=== PATIENT | female | born 1960 | race Caucasian/White ===

== ENCOUNTER 2017-04-15 16:41 | Inpatient (IN) | payer OTHER ==
[~2017-04-15] VITALS: Ht 160 cm; Wt 69.5 kg
[2017-04-15 16:46] VITALS: Ht 160 cm; Wt 69.5 kg
[2017-04-15 18:14] LABS: BASOPHIL % 1.2 % (0-2); PLATELET COUNT 306 x10^3mcL (130-400); RED CELL DISTRIBUTION WIDTH 12.6 % (11.5-14.5)
[2017-04-15 18:20] LABS: CALCIUM 8.8 mg/dL (8.5-10.1); CARBON DIOXIDE 26.9 mmol/L (21-32); CHLORIDE SERUM 106 mmol/L (98-107); CREATININE SERUM 0.7 mg/dL (0.6-1.0); GFR1 > 60 mL/min; GLUCOSE SERUM 152 mg/dL (74-106); POTASSIUM SERUM 3.3 mmol/L (3.5-5.1); SODIUM SERUM 143 mmol/L (136-145)
[2017-04-15 18:24] LABS: ALBUMIN 3.9 g/dL (3.4-5.0); ALKALINE PHOSPHATASE 77 U/L (46-116); ALT/SGPT 29 U/L (14-59); AST/SGOT 22 U/L (15-37); BILIRUBIN TOTAL 0.39 mg/dL (0.20-1.00); CHOLESTEROL 200 mg/dL (<200); HDL CHOLESTEROL 50 mg/dL (40-60); TOTAL PROTEIN, SERUM 7.3 g/dL (6.4-8.2)
[2017-04-15 18:29] LABS: LIPASE 1468 IU/L (73-393); TRIGLYCERIDES 219 mg/dL (<150)
[2017-04-15 18:58] LABS: FREE T4 0.97 ng/dL (0.76-1.46); FREE THYROXINE INDEX 2.4 ug/dL (1.4-4.5); T4(THYROXINE) 7.6 ug/dL (4.7-13.3)
[2017-04-15 19:23] LABS: T3 TOTAL 1.04 ng/mL
[2017-04-15 19:29] LABS: microscopic required? YES; urine erythrocyte 1+ (NEGATIVE)
[2017-04-15] MEDS ORDERED: ENALAPRIL MALEAT5 MG PO (21:24)
[2017-04-15] MEDS ORDERED: SIMVASTATIN40 M1 PO (21:24)
[2017-04-15] MEDS ORDERED: AMLODIPINE BESY10 M2 PO (21:25)
[2017-04-15] MEDS ORDERED: METFORMIN HCL1000 MG PO (21:27)
[2017-04-15 21:35] LABS: MAGNESIUM 1.9 mg/dL (1.8-2.4); PHOSPHOROUS 3.2 mg/dL (2.5-4.9)
[2017-04-15 21:44] VITALS: BP 138/80
[2017-04-15 21:59] LABS: AMPHETAMINE QUAL UR NONE DETECTED (NEG <=1000)
[2017-04-15 22:55] VITALS: BP 138/80
[2017-04-16 05:44] VITALS: BP 110/64
[2017-04-16 06:42] LABS: CALCIUM 7.9 mg/dL (8.5-10.1); CARBON DIOXIDE 23.1 mmol/L (21-32); CHLORIDE SERUM 112 mmol/L (98-107); CREATININE SERUM 0.5 mg/dL (0.6-1.0); GFR1 > 60 mL/min; GLUCOSE SERUM 127 mg/dL (74-106); POTASSIUM SERUM 4.1 mmol/L (3.5-5.1); SODIUM SERUM 144 mmol/L (136-145)
[2017-04-16 06:54] LABS: BASOPHIL % 0.6 % (0-2); PLATELET COUNT 241 x10^3mcL (130-400); RED CELL DISTRIBUTION WIDTH 13.3 % (11.5-14.5)
[2017-04-16 08:40] VITALS: BP 125/71
[2017-04-16] MEDS ORDERED: LAC PO (10:37)
[2017-04-16] MEDS ORDERED: MAC100 PO (10:37)
[2017-04-16 12:25] VITALS: BP 119/80
[2017-04-16 13:35] VITALS: BP 110/64
[2017-04-18] MEDS ORDERED: CIPRO500 MG PO (13:02)
== END 2017-04-16 15:52 | disposition home or self-care (01) | DRG 48 ==
LOC: ED 16:41 → DU 20:29
PROVIDERS: Specialist; ADMIT Family Medicine
DX: G90.8 Other disorders of autonomic nervous system (principal); K85.90 Acute pancreatitis without necrosis or infection, unspecified; E11.65 Type 2 diabetes mellitus with hyperglycemia; E83.51 Hypocalcemia; N39.0 Urinary tract infection, site not specified; E78.5 Hyperlipidemia, unspecified; E87.6 Hypokalemia; R31.9 Hematuria, unspecified; I10 Essential (primary) hypertension; Z85.89 Personal history of malignant neoplasm of other organs and systems; Z86.73 Personal history of transient ischemic attack (TIA), and cerebral infarction without residual deficits; Z90.89 Acquired absence of other organs; Z98.891 History of uterine scar from previous surgery; Z83.3 Family history of diabetes mellitus
CPT/HCPCS: 82962; 83880; 84439; 94150; G0480; J0694; J0696; J1170; J1940; J2405; J3010; J7030; J7050; J7620; Q0092; Q9967

== ENCOUNTER 2017-04-20 16:37 | Inpatient (IN) | payer OTHER ==
[~2017-04-20] VITALS: Ht 160 cm; Wt 66.4 kg
[~2017-04-20 16:37] MED LIST: AMLODIPINE BESY10 M2 PO; CIPRO500 MG PO; ENALAPRIL MALEAT5 MG PO; LAC PO; MAC100 PO; METFORMIN HCL1000 MG PO; SIMVASTATIN40 M1 PO
[2017-04-20 16:54] VITALS: Ht 160 cm; Wt 66.4 kg
[2017-04-20 21:05] LABS: BASOPHIL % 1.2 % (0-2); PLATELET COUNT 261 x10^3mcL (130-400); RED CELL DISTRIBUTION WIDTH 13.2 % (11.5-14.5)
[2017-04-20 21:13] LABS: CALCIUM 8.5 mg/dL (8.5-10.1); CARBON DIOXIDE 25.5 mmol/L (21-32); CHLORIDE SERUM 108 mmol/L (98-107); CREATININE SERUM 0.6 mg/dL (0.6-1.0); GFR1 > 60 mL/min; GLUCOSE SERUM 178 mg/dL (74-106); POTASSIUM SERUM 3.2 mmol/L (3.5-5.1); SODIUM SERUM 143 mmol/L (136-145)
[2017-04-20 21:26] LABS: ALBUMIN 3.4 g/dL (3.4-5.0); ALKALINE PHOSPHATASE 77 U/L (46-116); ALT/SGPT 25 U/L (14-59); AST/SGOT 14 U/L (15-37); BILIRUBIN TOTAL 0.33 mg/dL (0.20-1.00); CHOLESTEROL 166 mg/dL (<200); HDL CHOLESTEROL 47 mg/dL (40-60); MAGNESIUM 1.7 mg/dL (1.8-2.4); TOTAL PROTEIN, SERUM 6.5 g/dL (6.4-8.2)
[2017-04-20 21:30] LABS: microscopic required? YES; urine erythrocyte TRACE (NEGATIVE)
[2017-04-20 22:59] LABS: AMYLASE 133 U/L (25-115); LIPASE 1770 IU/L (73-393)
[2017-04-21 02:16] VITALS: BP 108/75
[2017-04-21 05:51] VITALS: BP 120/70
[2017-04-21 07:23] LABS: BASOPHIL % 0.3 % (0-2); PLATELET COUNT 256 x10^3mcL (130-400); RED CELL DISTRIBUTION WIDTH 13.8 % (11.5-14.5)
[2017-04-21 07:45] LABS: CALCIUM 8.5 mg/dL (8.5-10.1); CARBON DIOXIDE 21.3 mmol/L (21-32); CHLORIDE SERUM 107 mmol/L (98-107); CREATININE SERUM 0.6 mg/dL (0.6-1.0); GFR1 > 60 mL/min; GLUCOSE SERUM 243 mg/dL (74-106); MAGNESIUM 2.8 mg/dL (1.8-2.4); PHOSPHOROUS 2.1 mg/dL (2.5-4.9); POTASSIUM SERUM 3.6 mmol/L (3.5-5.1); SODIUM SERUM 141 mmol/L (136-145)
[2017-04-21 09:43] VITALS: BP 127/68
[2017-04-21 13:58] VITALS: BP 107/55
[2017-04-21 14:37] LABS: AMPHETAMINE QUAL UR NONE DETECTED (NEG <=1000)
[2017-04-21 17:48] VITALS: BP 102/52
[2017-04-21 21:36] VITALS: BP 110/64
[2017-04-22 06:20] VITALS: BP 102/64
[2017-04-22 06:44] LABS: PLATELET COUNT 269 x10^3mcL (130-400); RED CELL DISTRIBUTION WIDTH 13.5 % (11.5-14.5)
[2017-04-22 07:16] LABS: CALCIUM 8.1 mg/dL (8.5-10.1); CARBON DIOXIDE 23.2 mmol/L (21-32); CHLORIDE SERUM 110 mmol/L (98-107); CREATININE SERUM 0.6 mg/dL (0.6-1.0); GFR1 > 60 mL/min; GLUCOSE SERUM 175 mg/dL (74-106); MAGNESIUM 1.9 mg/dL (1.8-2.4); PHOSPHOROUS 2.9 mg/dL (2.5-4.9); POTASSIUM SERUM 3.3 mmol/L (3.5-5.1); SODIUM SERUM 144 mmol/L (136-145)
[2017-04-22 08:12] LABS: BAND NEUTROPHIL 1 % (0-10); METAMYELOCTE 1 % (0-2); MONOCYTE 4 % (0-7); SEGMENTED NEUTROPHILS 76 % (37-75); rbc morphology (normal/abnorm) NORMAL (NORMAL)
[2017-04-22 09:24] VITALS: BP 122/77
[2017-04-22 13:31] LABS: BASOPHIL % 0.2 % (0-2); PLATELET COUNT 295 x10^3mcL (130-400); RED CELL DISTRIBUTION WIDTH 13.5 % (11.5-14.5)
[2017-04-22 17:56] VITALS: BP 132/74
[2017-04-22 20:30] VITALS: BP 129/75
[2017-04-23 05:30] VITALS: BP 131/58
[2017-04-23 07:24] LABS: CALCIUM 8.6 mg/dL (8.5-10.1); CARBON DIOXIDE 27.5 mmol/L (21-32); CHLORIDE SERUM 108 mmol/L (98-107); CREATININE SERUM 0.7 mg/dL (0.6-1.0); GFR1 > 60 mL/min; GLUCOSE SERUM 122 mg/dL (74-106); POTASSIUM SERUM 3.9 mmol/L (3.5-5.1); SODIUM SERUM 143 mmol/L (136-145)
[2017-04-23 07:37] LABS: BASOPHIL % 0.6 % (0-2); PLATELET COUNT 284 x10^3mcL (130-400); RED CELL DISTRIBUTION WIDTH 13.8 % (11.5-14.5)
[2017-04-23 09:30] VITALS: BP 131/74
[2017-04-23 11:23] VITALS: BP 131/74
[2017-04-23] MEDS ORDERED: NORCO1 TA2 PO (13:20)
[2017-04-23] MEDS ORDERED: STOOL SOFTENER100 MG PO (13:20)
== END 2017-04-23 13:59 | disposition home or self-care (01) | DRG 282 ==
LOC: ED 16:37 → DU 04-21 00:22 → MU 04-21 01:59
PROVIDERS: Emergency Medicine; Family Medicine
DX: K85.90 Acute pancreatitis without necrosis or infection, unspecified (principal); E87.8 Other disorders of electrolyte and fluid balance, not elsewhere classified; D68.69 Other thrombophilia; E83.42 Hypomagnesemia; E11.65 Type 2 diabetes mellitus with hyperglycemia; N39.0 Urinary tract infection, site not specified; I10 Essential (primary) hypertension; G47.00 Insomnia, unspecified; E87.6 Hypokalemia; E78.5 Hyperlipidemia, unspecified; H81.10 Benign paroxysmal vertigo, unspecified ear; Z68.25 Body mass index [BMI] 25.0-25.9, adult; R51 Headache; G90.8 Other disorders of autonomic nervous system
CPT/HCPCS: 82962; 83880; 87804; J0744; J1885; J2405; J2550; J2930; J3010; J3475; J3480; J3490; J7030; J7613; J7644; J8597; Q0092

== ENCOUNTER 2017-05-06 15:44 | Inpatient (IN) | payer OTHER ==
[~2017-05-06] VITALS: Ht 160 cm; Wt 62.7 kg
[2017-05-06 00:30] VITALS: BP 131/73
[~2017-05-06 15:44] MED LIST changes: +NORCO1 TA2 PO; +STOOL SOFTENER100 MG PO
[2017-05-06 20:36] LABS: AMPHETAMINE QUAL UR NONE DETECTED (NEG <=1000)
[2017-05-06 20:37] LABS: CALCIUM 8.4 mg/dL (8.5-10.1); CARBON DIOXIDE 26.3 mmol/L (21-32); CHLORIDE SERUM 108 mmol/L (98-107); CREATININE SERUM 0.6 mg/dL (0.6-1.0); GFR1 > 60 mL/min; GLUCOSE SERUM 126 mg/dL (74-106); POTASSIUM SERUM 3.2 mmol/L (3.5-5.1); SODIUM SERUM 143 mmol/L (136-145)
[2017-05-06 20:41] LABS: ALBUMIN 3.6 g/dL (3.4-5.0); ALKALINE PHOSPHATASE 82 U/L (46-116); ALT/SGPT 24 U/L (14-59); AST/SGOT 15 U/L (15-37); BILIRUBIN TOTAL 0.6 mg/dL (0.20-1.00); LIPASE 235 IU/L (73-393)
[2017-05-06 20:48] LABS: BASOPHIL % 0.3 % (0-2); PLATELET COUNT 289 x10^3mcL (130-400); RED CELL DISTRIBUTION WIDTH 13.3 % (11.5-14.5)
[2017-05-07 00:05] LABS: microscopic required? YES; urine erythrocyte 2+ (NEGATIVE)
[2017-05-07 00:43] VITALS: BP 130/84
[2017-05-07 00:58] LABS: T3 TOTAL 1.35 ng/mL
[2017-05-07 00:59] LABS: PHOSPHOROUS 3.4 mg/dL (2.5-4.9)
[2017-05-07 01:06] VITALS: Ht 160 cm; Wt 62.7 kg
[2017-05-07 01:07] LABS: CHOLESTEROL/HDL RATIO 3.8
[2017-05-07 01:10] LABS: FREE T4 1.06 ng/dL (0.76-1.46); FREE THYROXINE INDEX 2.7 ug/dL (1.4-4.5); T4(THYROXINE) 8.5 ug/dL (4.7-13.3)
[2017-05-07 05:53] LABS: BASOPHIL % 0.5 % (0-2); PLATELET COUNT 267 x10^3mcL (130-400); RED CELL DISTRIBUTION WIDTH 13.5 % (11.5-14.5)
[2017-05-07 06:02] VITALS: BP 131/73
[2017-05-07 06:19] LABS: CALCIUM 8.4 mg/dL (8.5-10.1); CARBON DIOXIDE 24.7 mmol/L (21-32); CHLORIDE SERUM 110 mmol/L (98-107); CREATININE SERUM 0.6 mg/dL (0.6-1.0); GFR1 > 60 mL/min; GLUCOSE SERUM 115 mg/dL (74-106); MAGNESIUM 1.9 mg/dL (1.8-2.4); PHOSPHOROUS 2.9 mg/dL (2.5-4.9); POTASSIUM SERUM 4.1 mmol/L (3.5-5.1); SODIUM SERUM 143 mmol/L (136-145)
[2017-05-07 09:53] VITALS: BP 140/79
[2017-05-07 13:12] VITALS: BP 137/86
[2017-05-07 16:39] VITALS: BP 134/67
[2017-05-07 20:05] VITALS: BP 110/64
[2017-05-08 02:37] LABS: BASOPHIL % 0.3 % (0-2); PLATELET COUNT 267 x10^3mcL (130-400); RED CELL DISTRIBUTION WIDTH 13.2 % (11.5-14.5)
[2017-05-08 02:48] LABS: CALCIUM 8.7 mg/dL (8.5-10.1); CHLORIDE SERUM 109 mmol/L (98-107); CREATININE SERUM 0.7 mg/dL (0.6-1.0); GFR1 > 60 mL/min; GLUCOSE SERUM 144 mg/dL (74-106); POTASSIUM SERUM 3.7 mmol/L (3.5-5.1); SODIUM SERUM 143 mmol/L (136-145)
[2017-05-08 05:56] VITALS: BP 132/70
[2017-05-08] MEDS ORDERED: LEVOFLOXACIN750 M1 PO (08:59)
[2017-05-08] MEDS ORDERED: BD LACTINEX1.4 MG PO (09:00)
[2017-05-08 10:00] VITALS: BP 133/74
[2017-05-08 11:30] VITALS: BP 133/74
[2017-05-08] MEDS ORDERED: PHEDML PO (12:31)
[2017-05-08] MEDS ORDERED: FLO4 PO (13:14)
== END 2017-05-08 14:14 | disposition home or self-care (01) | DRG 137 ==
LOC: ED 15:44 → DU 22:32 → MU 22:32 → DU 23:53 → MU 05-07 08:14
PROVIDERS: Emergency Medicine; Family Medicine
DX: J69.0 Pneumonitis due to inhalation of food and vomit (principal); D68.69 Other thrombophilia; E87.6 Hypokalemia; I10 Essential (primary) hypertension; E11.65 Type 2 diabetes mellitus with hyperglycemia; N20.0 Calculus of kidney; F12.10 Cannabis abuse, uncomplicated; G47.00 Insomnia, unspecified; E78.5 Hyperlipidemia, unspecified; G51.0 Bell's palsy; Z85.42 Personal history of malignant neoplasm of other parts of uterus; Z86.73 Personal history of transient ischemic attack (TIA), and cerebral infarction without residual deficits; Z83.3 Family history of diabetes mellitus; G90.8 Other disorders of autonomic nervous system; R31.9 Hematuria, unspecified
CPT/HCPCS: 82962; 83880; 84439; 87804; 94150; G0480; J1885; J1940; J1956; J2405; J3490; J7030; J7620; J8597; Q0092

== ENCOUNTER 2017-12-17 23:20 | Emergency (ER) | payer OTHER ==
[~2017-12-17] VITALS: Ht 160 cm; Wt 64.9 kg
[~2017-12-17 23:20] MED LIST changes: +BD LACTINEX1.4 MG PO; +FLO4 PO; +LEVOFLOXACIN750 M1 PO; +PHEDML PO
[2017-12-17 23:27] VITALS: Ht 160 cm; Wt 64.9 kg
[2017-12-18 00:52] LABS: PLATELET COUNT 292 x10^3mcL (130-400); RED CELL DISTRIBUTION WIDTH 13.3 % (11.5-14.5)
[2017-12-18 01:12] LABS: CALCIUM 9.2 mg/dL (8.5-10.1); CHLORIDE SERUM 107 mmol/L (98-107); CREATININE SERUM 0.7 mg/dL (0.6-1.0); GFR1 > 60 mL/min; GLUCOSE SERUM 140 mg/dL (74-106); POTASSIUM SERUM 3.2 mmol/L (3.5-5.1); SODIUM SERUM 143 mmol/L (136-145)
[2017-12-18 01:17] LABS: ALBUMIN 4.2 g/dL (3.4-5.0); ALKALINE PHOSPHATASE 81 U/L (46-116); ALT/SGPT 23 U/L (14-59); AST/SGOT 15 U/L (15-37); BILIRUBIN TOTAL 0.78 mg/dL (0.20-1.00); TOTAL PROTEIN, SERUM 7.8 g/dL (6.4-8.2)
[2017-12-18 01:30] LABS: microscopic required? YES; urine erythrocyte 2+ (NEGATIVE)
[2017-12-18 04:59] VITALS: BP 128/75
== END 2017-12-18 04:59 | disposition home or self-care (01) ==
LOC: ED 23:20
PROVIDERS: Emergency Medicine
DX: K59.00 Constipation, unspecified (principal); I10 Essential (primary) hypertension; E11.9 Type 2 diabetes mellitus without complications; Z85.41 Personal history of malignant neoplasm of cervix uteri; Z86.73 Personal history of transient ischemic attack (TIA), and cerebral infarction without residual deficits
CPT/HCPCS: J1885; J2405; J7030

== ENCOUNTER 2018-01-19 19:09 | Emergency (ER) | payer OTHER ==
[~2018-01-19] VITALS: Ht 160 cm; Wt 66.3 kg
[2018-01-19 19:15] VITALS: Ht 160 cm; Wt 66.3 kg
[2018-01-19 22:50] VITALS: BP 134/78
== END 2018-01-19 22:50 | disposition home or self-care (01) ==
LOC: ED 19:09
DX: M75.31 Calcific tendinitis of right shoulder (principal); I10 Essential (primary) hypertension; E11.9 Type 2 diabetes mellitus without complications; G51.0 Bell's palsy; Z90.89 Acquired absence of other organs; Z85.41 Personal history of malignant neoplasm of cervix uteri
CPT/HCPCS: J1100; J1885; Q0092

== ENCOUNTER 2018-06-14 19:59 | Emergency (ER) | payer OTHER ==
[~2018-06-14] VITALS: Ht 160 cm; Wt 70.8 kg
[2018-06-14 20:02] VITALS: Ht 160 cm; Wt 70.8 kg
[2018-06-14 21:07] LABS: BASOPHIL % 0.8 % (0-2); PLATELET COUNT 282 x10^3mcL (130-400); RED CELL DISTRIBUTION WIDTH 12.9 % (11.5-14.5)
[2018-06-14 21:22] LABS: CALCIUM 8.9 mg/dL (8.5-10.1); CARBON DIOXIDE 28.2 mmol/L (21-32); CHLORIDE SERUM 102 mmol/L (98-107); GFR1 > 60 mL/min; GLUCOSE SERUM 337 mg/dL (74-106); POTASSIUM SERUM 3.9 mmol/L (3.5-5.1); SODIUM SERUM 138 mmol/L (136-145)
[2018-06-14 21:27] LABS: ALBUMIN 3.7 g/dL (3.4-5.0); ALKALINE PHOSPHATASE 120 U/L (46-116); ALT/SGPT 29 U/L (14-59); AST/SGOT 18 U/L (15-37); BILIRUBIN TOTAL 0.46 mg/dL (0.20-1.00); HDL CHOLESTEROL 50 mg/dL (40-60); LIPASE 194 IU/L (73-393); TOTAL PROTEIN, SERUM 7.3 g/dL (6.4-8.2)
[2018-06-14 21:28] LABS: CHOLESTEROL 255 mg/dL (<200); CHOLESTEROL/HDL RATIO 5.1; TRIGLYCERIDES 452 mg/dL (<150)
[2018-06-14 21:39] LABS: UA SPECIFIC GRAVITY 1.025 (1.005-1.035); microscopic required? YES; urine erythrocyte 1+ (NEGATIVE)
[2018-06-14 21:40] LABS: T3 TOTAL 1.24 ng/mL
[2018-06-14 21:48] LABS: FREE T4 0.86 ng/dL (0.76-1.46); FREE THYROXINE INDEX 2.3 ug/dL (1.4-4.5); T4(THYROXINE) 7.8 ug/dL (4.7-13.3)
[2018-06-14 23:15] VITALS: BP 140/77
== END 2018-06-14 23:25 | disposition home or self-care (01) ==
LOC: ED 19:59
PROVIDERS: Specialist
DX: E11.65 Type 2 diabetes mellitus with hyperglycemia (principal); R07.89 Other chest pain; E78.1 Pure hyperglyceridemia; F43.9 Reaction to severe stress, unspecified
CPT/HCPCS: 82962; 83880; 84439; 87804; J1885; J7030; Q0092

== ENCOUNTER 2018-07-25 14:35 | Inpatient (IN) | payer OTHER ==
[~2018-07-25] VITALS: Ht 160 cm; Wt 69.5 kg
[2018-07-25 15:34] LABS: PLATELET COUNT 283 x10^3mcL (130-400); RED CELL DISTRIBUTION WIDTH 12.8 % (11.5-14.5)
[2018-07-25 15:40] LABS: CALCIUM 8.6 mg/dL (8.5-10.1); CARBON DIOXIDE 25.6 mmol/L (21-32); CHLORIDE SERUM 98 mmol/L (98-107); CREATININE SERUM 0.9 mg/dL (0.6-1.0); GFR1 > 60 mL/min; GLUCOSE SERUM 389 mg/dL (74-106); POTASSIUM SERUM 3.8 mmol/L (3.5-5.1); SODIUM SERUM 132 mmol/L (136-145)
[2018-07-25 15:45] LABS: ALBUMIN 3.7 g/dL (3.4-5.0); ALKALINE PHOSPHATASE 116 U/L (46-116); ALT/SGPT 25 U/L (14-59); AST/SGOT 28 U/L (15-37); BASOPHIL % 2.3 % (0-2); BILIRUBIN TOTAL 0.99 mg/dL (0.20-1.00); TOTAL PROTEIN, SERUM 7.1 g/dL (6.4-8.2)
[2018-07-25 16:17] LABS: microscopic required? YES; urine erythrocyte 2+ (NEGATIVE)
[2018-07-25 17:48] VITALS: BP 140/81
[2018-07-25 17:56] VITALS: Ht 160 cm; Wt 69.5 kg
[2018-07-25 19:10] LABS: MAGNESIUM 1.6 mg/dL (1.8-2.4); PHOSPHOROUS 3.4 mg/dL (2.5-4.9)
[2018-07-25 19:41] LABS: CHOLESTEROL/HDL RATIO 4.7
[2018-07-25 21:27] VITALS: BP 120/70
[2018-07-26 05:19] VITALS: BP 126/73
[2018-07-26 06:22] LABS: BASOPHIL % 0.7 % (0-2); PLATELET COUNT 243 x10^3mcL (130-400); RED CELL DISTRIBUTION WIDTH 12.7 % (11.5-14.5)
[2018-07-26 06:38] LABS: CALCIUM 8.2 mg/dL (8.5-10.1); CARBON DIOXIDE 26.9 mmol/L (21-32); CHLORIDE SERUM 106 mmol/L (98-107); CREATININE SERUM 0.6 mg/dL (0.6-1.0); GFR1 > 60 mL/min; GLUCOSE SERUM 215 mg/dL (74-106); MAGNESIUM 1.9 mg/dL (1.8-2.4); POTASSIUM SERUM 3.9 mmol/L (3.5-5.1); SODIUM SERUM 140 mmol/L (136-145)
[2018-07-26 08:06] VITALS: BP 143/99
[2018-07-26 12:19] VITALS: BP 136/73
[2018-07-26] MEDS ORDERED: GLIMEPIRIDE4 M1 PO (12:47)
[2018-07-26 13:00] VITALS: BP 136/73
== END 2018-07-26 16:10 | disposition home or self-care (01) | DRG 203 ==
LOC: ED 14:35 → DU 16:34
PROVIDERS: Emergency Medicine; ADMIT Internal Medicine
DX: M94.0 Chondrocostal junction syndrome [Tietze] (principal); N17.0 Acute kidney failure with tubular necrosis; E11.65 Type 2 diabetes mellitus with hyperglycemia; E87.1 Hypo-osmolality and hyponatremia; D68.69 Other thrombophilia; I10 Essential (primary) hypertension; E78.5 Hyperlipidemia, unspecified; D72.829 Elevated white blood cell count, unspecified; G51.0 Bell's palsy; Z85.41 Personal history of malignant neoplasm of cervix uteri; Z86.73 Personal history of transient ischemic attack (TIA), and cerebral infarction without residual deficits; R55 Syncope and collapse; Z90.49 Acquired absence of other specified parts of digestive tract; Z83.3 Family history of diabetes mellitus
CPT/HCPCS: 82962; 83880; J1885; J2405; J7030; Q0092

== ENCOUNTER 2018-12-28 19:50 | Inpatient (IN) | payer OTHER ==
[~2018-12-28] VITALS: Ht 160 cm; Wt 68.0 kg
[~2018-12-28 19:50] MED LIST changes: +GLIMEPIRIDE4 M1 PO
[2018-12-28 19:53] VITALS: Ht 160 cm; Wt 68.0 kg
[2018-12-28 20:30] LABS: BASOPHIL % 0.5 % (0-2); PLATELET COUNT 292 x10^3mcL (130-400)
[2018-12-28 20:39] LABS: CALCIUM 8.1 mg/dL (8.5-10.1); CARBON DIOXIDE 25.8 mmol/L (21-32); CHLORIDE SERUM 108 mmol/L (98-107); CREATININE SERUM 0.7 mg/dL (0.6-1.0); GFR1 > 60 mL/min; GLUCOSE SERUM 146 mg/dL (74-106); POTASSIUM SERUM 3.8 mmol/L (3.5-5.1); SODIUM SERUM 145 mmol/L (136-145)
[2018-12-28 20:44] LABS: ALBUMIN 3.8 g/dL (3.4-5.0); ALKALINE PHOSPHATASE 86 U/L (46-116); ALT/SGPT 26 U/L (14-59); AST/SGOT 14 U/L (15-37); BILIRUBIN TOTAL 0.46 mg/dL (0.20-1.00); LIPASE 1290 IU/L (73-393); TOTAL PROTEIN, SERUM 6.8 g/dL (6.4-8.2)
[2018-12-28 21:17] LABS: CHOLESTEROL/HDL RATIO 4.7
[2018-12-28] MEDS ORDERED: [UNRECOGNIZED DRUG - OTHER] PO (21:19)
[2018-12-28] MEDS ORDERED: ATORVASTATIN CA40 M1 PO (21:19)
[2018-12-28] MEDS ORDERED: ENALAPRIL MALEA20 MG PO (21:20)
[2018-12-28] MEDS ORDERED: NORCO1 TA2 PO (21:20)
[2018-12-28 22:15] VITALS: BP 140/85
[2018-12-29 06:15] VITALS: BP 120/63
[2018-12-29 06:49] LABS: BASOPHIL % 0.6 % (0-2); PLATELET COUNT 251 x10^3mcL (130-400); RED CELL DISTRIBUTION WIDTH 13.3 % (11.5-14.5)
[2018-12-29 07:01] LABS: CALCIUM 7.6 mg/dL (8.5-10.1); CARBON DIOXIDE 26.8 mmol/L (21-32); CHLORIDE SERUM 111 mmol/L (98-107); CREATININE SERUM 0.6 mg/dL (0.6-1.0); GFR1 > 60 mL/min; GLUCOSE SERUM 130 mg/dL (74-106); LIPASE 160 IU/L (73-393); POTASSIUM SERUM 3.9 mmol/L (3.5-5.1); SODIUM SERUM 145 mmol/L (136-145)
[2018-12-29 09:58] VITALS: BP 140/71
[2018-12-29 12:05] LABS: AMPHETAMINE QUAL UR NONE DETECTED (See below)
[2018-12-29 12:18] LABS: UA SPECIFIC GRAVITY <=1.005 (1.005-1.035); microscopic required? YES; urine erythrocyte TRACE (NEGATIVE)
[2018-12-29 18:09] VITALS: BP 140/69
[2018-12-29 20:41] VITALS: BP 149/77
[2018-12-30 05:49] VITALS: BP 145/93
[2018-12-30 06:44] LABS: BASOPHIL % 0.5 % (0-2); PLATELET COUNT 227 x10^3mcL (130-400); RED CELL DISTRIBUTION WIDTH 13.2 % (11.5-14.5)
[2018-12-30 07:08] LABS: CALCIUM 7.4 mg/dL (8.5-10.1); CARBON DIOXIDE 22.1 mmol/L (21-32); CHLORIDE SERUM 115 mmol/L (98-107); CREATININE SERUM 0.5 mg/dL (0.6-1.0); GFR1 > 60 mL/min; GLUCOSE SERUM 136 mg/dL (74-106); MAGNESIUM 1.5 mg/dL (1.8-2.4); PHOSPHOROUS 2.9 mg/dL (2.5-4.9); POTASSIUM SERUM 3.6 mmol/L (3.5-5.1); SODIUM SERUM 147 mmol/L (136-145)
[2018-12-30 08:36] VITALS: BP 148/87
[2018-12-30 16:51] VITALS: BP 152/92
[2018-12-30 21:10] VITALS: BP 163/86
[2018-12-30 22:03] VITALS: BP 159/90
[2018-12-31 06:18] LABS: BASOPHIL % 0.8 % (0-2); PLATELET COUNT 241 x10^3mcL (130-400); RED CELL DISTRIBUTION WIDTH 13.4 % (11.5-14.5)
[2018-12-31 06:23] VITALS: BP 139/78
[2018-12-31 06:50] LABS: CHLORIDE SERUM 113 mmol/L (98-107); CREATININE SERUM 0.6 mg/dL (0.6-1.0); GFR1 > 60 mL/min; GLUCOSE SERUM 143 mg/dL (74-106); MAGNESIUM 1.8 mg/dL (1.8-2.4); POTASSIUM SERUM 3.6 mmol/L (3.5-5.1); SODIUM SERUM 147 mmol/L (136-145)
[2018-12-31 08:03] VITALS: BP 152/85
[2018-12-31 08:40] VITALS: BP 152/85
[2018-12-31] MEDS ORDERED: BEN10I PO (09:19)
== END 2018-12-31 10:25 | disposition home or self-care (01) | DRG 282 ==
LOC: ED 19:50 → MU 21:05
PROVIDERS: Emergency Medicine; ADMIT Internal Medicine
DX: K85.10 Biliary acute pancreatitis without necrosis or infection (principal); E11.65 Type 2 diabetes mellitus with hyperglycemia; G51.0 Bell's palsy; I10 Essential (primary) hypertension; Z85.41 Personal history of malignant neoplasm of cervix uteri; Z79.84 Long term (current) use of oral hypoglycemic drugs; Z86.73 Personal history of transient ischemic attack (TIA), and cerebral infarction without residual deficits; E78.00 Pure hypercholesterolemia, unspecified; Z83.3 Family history of diabetes mellitus; E78.5 Hyperlipidemia, unspecified; E83.51 Hypocalcemia
CPT/HCPCS: 82962; G0378; J1885; J2270; J2405; J3010; J3490; J7030; Q0092

== ENCOUNTER 2019-03-04 20:57 | Emergency (ER) | payer OTHER ==
[~2019-03-04] VITALS: Ht 160 cm; Wt 66.2 kg
[~2019-03-04 20:57] MED LIST changes: +ATORVASTATIN CA40 M1 PO; +BEN10I PO; +ENALAPRIL MALEA20 MG PO; +[UNRECOGNIZED DRUG - OTHER] PO
[2019-03-04 21:03] VITALS: Ht 160 cm; Wt 66.2 kg
[2019-03-04 22:16] LABS: BASOPHIL % 0.8 % (0-2); RED CELL DISTRIBUTION WIDTH 13.4 % (11.5-14.5)
[2019-03-04 22:17] LABS: PLATELET COUNT 486 x10^3mcL (130-400)
[2019-03-04 22:54] LABS: ALBUMIN 3.5 g/dL (3.4-5.0); ALKALINE PHOSPHATASE 156 U/L (46-116); ALT/SGPT 18 U/L (14-59); AST/SGOT 5 U/L (15-37); BILIRUBIN TOTAL 0.31 mg/dL (0.20-1.00); CALCIUM 9.4 mg/dL (8.5-10.1); CARBON DIOXIDE 30.5 mmol/L (21-32); CHLORIDE SERUM 94 mmol/L (98-107); GFR1 > 60 mL/min; POTASSIUM SERUM 4.3 mmol/L (3.5-5.1); SODIUM SERUM 132 mmol/L (136-145); TOTAL PROTEIN, SERUM 7.7 g/dL (6.4-8.2)
[2019-03-04 22:59] LABS: GLUCOSE SERUM 454 mg/dL (74-106)
[2019-03-04 23:40] LABS: T4(THYROXINE) 9.4 ug/dL (4.7-13.3)
[2019-03-04 23:57] LABS: microscopic required? YES; urine erythrocyte 1+ (NEGATIVE)
[2019-03-05 00:13] LABS: AMPHETAMINE QUAL UR NONE DETECTED (See below)
[2019-03-05 01:04] VITALS: BP 128/77
== END 2019-03-05 01:04 | disposition home or self-care (01) ==
LOC: ED 20:57
PROVIDERS: Emergency Medicine
DX: E11.65 Type 2 diabetes mellitus with hyperglycemia (principal); I10 Essential (primary) hypertension; E78.00 Pure hypercholesterolemia, unspecified; F12.20 Cannabis dependence, uncomplicated; G45.9 Transient cerebral ischemic attack, unspecified; G51.0 Bell's palsy; Z90.89 Acquired absence of other organs; Z85.41 Personal history of malignant neoplasm of cervix uteri
CPT/HCPCS: 36600; 82962; 83880; J1815; J7030